=== PATIENT | male | born 1950 | race Caucasian/White ===

== ENCOUNTER 2016-12-26 11:30 | Emergency (ER) | payer OTHER ==
[~2016-12-26] VITALS: Ht 175.3 cm; Wt 86.0 kg
[2016-12-26 11:34] VITALS: Ht 175.3 cm; Wt 86.0 kg
[2016-12-26] MEDS ORDERED: SOD CHLORIDE 0.9% 1,000 ML IV STA (15:20)
[2016-12-26] MEDS ORDERED: KETOROLAC 30 MG INJ IV STA ×2 (15:20→17:36)
[2016-12-26] MEDS ORDERED: ONDANSETRON 4 MG INJ IV STA (15:20)
[2016-12-26 15:43] VITALS: BP 136/78; PULSE 72; RESP 16; TEMP 97.9
[2016-12-26 15:52] LABS: BASOPHILS % 0.5 % (0.0-2.0); EOSINOPHILS # 0.1 10^3/ul (0.0-0.5); EOSINOPHILS % 1.2 % (0.0-7.0); HEMATOCRIT 46.2 % (42.0-52.0); LYMPHOCYTES % 26.4 % (15.0-51.0); MEAN CORPUSCULAR HEMOGLOBIN 30.2 pg (29.0-33.0); MEAN CORPUSCULAR HGB CONC 32.5 g/dl (32.0-37.0); MEAN PLATELET VOLUME 10.9 fl (7.4-10.4); MONOCYTE # 0.6 10^3/ul (0.3-0.9); MONOCYTES % 7.6 % (0.0-11.0); NEUTROPHIL # 4.8 10^3/ul (1.6-7.5); PLATELET COUNT 166 10^3/UL (140-415); RED BLOOD COUNT 4.97 10^6/ul (4.70-6.10); RED CELL DISTRIBUTION WIDTH 13.2 % (11.5-14.5); WHITE BLOOD COUNT 7.5 10^3/ul (4.8-10.8)
[2016-12-26 15:57] LABS: ADD UMIC NO; UR ASCORBIC ACID 20 mg/dL (NEGATIVE); UR BILIRUBIN (Dip) NEGATIVE (NEGATIVE); UR BLOOD (Dip) NEGATIVE (NEGATIVE); UR CLARITY CLEAR (CLEAR); UR COLOR STRAW (YELLOW); UR GLUCOSE (Dip) NEGATIVE (NEGATIVE); UR KETONES (Dip) NEGATIVE (NEGATIVE); UR LEUKOCYTE ESTERASE (Dip) NEGATIVE Leu/ul (NEGATIVE); UR NITRITE (Dip) NEGATIVE (NEGATIVE); UR SPECIFIC GRAVITY (Dip) 1.008 (1.003-1.030); UR TOTAL PROTEIN (Dip) NEGATIVE (NEGATIVE); UR UROBILINOGEN (Dip) NEGATIVE (NEGATIVE)
[2016-12-26 16:18] LABS: ALBUMIN 4.5 g/dl (3.3-4.9); ALBUMIN/GLOBULIN RATIO 1.12; BILIRUBIN,INDIRECT 0.4 mg/dl (0-1.1); BILIRUBIN,TOTAL 0.4 mg/dl (0.2-1.3); CALCIUM 9.7 mg/dl (8.4-10.2); CREATININE 1.3 mg/dl (0.61-1.24); POTASSIUM 3.9 mmol/L (3.5-5.1); TOTAL PROTEIN 8.5 g/dl (6.1-8.1)
[2016-12-26] MEDS ORDERED: morphine 4 MG/ML VIAL IV STA (17:27)
--- NOTE | 2016-12-26 17:33 | RADRPT ---
PROCEDURE: CT Abdomen and Pelvis without contrast. CLINICAL INDICATION: Abdominal and pelvic pain. Left lower quadrant pain. TECHNIQUE: CT scan of the abdomen and pelvis without contrast was performed. Coronal and sagittal reformatted images were obtained from the axial source images. Images were reviewed on a high-resolu [employer] PACS workstation. Total exam DLP is 884.13 mGy-cm. CTDIvol is 13.60 mGy. One or more of the f ollowing dose reduction techniques were used: Automated exposure control, adjustment of the mA and/o r kV according to patient size, use of iterative reconstruction technique. COMPARISON: None. FINDINGS: The lung bases are normal. There is no pleural effusion. The liver is normal in size and attenuation. There is no focal hepatic lesion. The gallbladder is surgically absent with clips noted in the gallbladder bed. The bile ducts are nor mal. The spleen is normal in size. There is no focal splenic lesion. Both adrenals are normal with no enlargement or mass. The pancreas is unremarkable with no mass or evidence of pancreatitis. There is no renal mass or hydronephrosis. There is no renal calculus or ureteral calculus. The abdominal aorta is not dilated. There is calcification in the aorta consistent with atherosclero sis. There is no retroperitoneal lymphadenopathy or mass. There is no pelvic lymphadenopathy or mass. The bladder and distal ureters are normal. The periappendiceal region is unremarkable with no evidence of appendicitis. The appendix is well se en and appears normal. The bowel and mesentery are normal. There is no free fluid or free gas. There are degenerative changes of the spine. There is no fracture or lytic lesion. IMPRESSION: 1. Status post cholecystectomy. 2. Atherosclerosis. 3. Normal appendix. 4. No urinary tract calculus or hydronephrosis. 5. Degenerative changes of the spine. RPTAT: QQ .Hussain Zamora MD, MD Date Time Electronically viewed and signed by .Hussain Zamora MD, on 12/26/2016 17:33 .R/
--- NOTE | 2016-12-26 17:44 | ERD ---
ER Documentation Chief Complaint Date/Time DATE: 12/26/16 TIME: 17:41 Chief Complaint LEFT FLANK PAIN SINCE YESTERDAY HPI This is a 66-year-old male presents to the ER for evaluation of left-sided abdominal pain for the past 24 hours. He localizes the pain to the left portion of his abdomen and describes as achy pain with no radiation. He denies any nausea or vomiting associated with this but does state that he has constipation. The patient states that he came to the ER today for evaluation of this pain and denies any fevers associated with this and denies any chest pain or shortness of breath or palpitations. ROS All systems reviewed and are negative except as per history of present illness. PMhx/Soc Hx Cardiac Disorders: Yes (HTN) Hx Alcohol Use: No Hx Substance Use: No Hx Tobacco Use: No Smoking Status: Never smoker Physical Exam Vitals Vital Signs Date Time Temp Pulse Resp B/P Pulse Ox O2 Delivery O2 Flow Rate FiO2 12/26/16 15:43 97.9 72 16 136/78 99 12/26/16 11:34 98.1 73 18 149/73 99 Physical Exam INITIAL VITAL SIGNS: Reviewed by me GENERAL: The patient is well developed and appropriate for usual state of health in no apparent distress HEENT: Pupils equal, round, and reactive to light. EOMI. There is no scleral icterus. NECK: C-spine is soft and supple, there is no meningismus. There is no cervical lymphadenopathy. LUNGS: Clear to auscultation bilaterally. There are no rales, wheezes or rhonchi. HEART: Regular rate and rhythm, no murmurs, clicks, rubs or gallops. ABDOMEN: Lower quadrant tenderness to palpation, otherwise soft, non-tender, non -distended. There are bowel sounds in all four quadrants. No rebound or guarding. EXTREMITIES: There is no peripheral cyanosis or edema. No focal swelling or erythema. NEUROLOGICAL: The patient moves all four extremities with 5/5 strength. Cranial nerves II - XII are intact. Normal gait. Alert and oriented SKIN: There is no apparent rash or petechiae. HEME/LYMPHATIC: There is no evidence of excessive bruising or lymphedema. PSYCHIATRIC: The patient does not appear anxious or depressed. Result Diagram: 12/26/16 1530 12/26/16 1530 Results 24 hrs Laboratory Tests Test 12/26/16 15:30 White Blood Count 7.510^3/ul Red Blood Count 4.9710^6/ul Hemoglobin 15.0g/dl Hematocrit 46.2% Mean Corpuscular Volume 93.0fl Mean Corpuscular Hemoglobin 30.2pg Mean Corpuscular Hemoglobin Concent 32.5g/dl Red Cell Distribution Width 13.2% Platelet Count 78279^3/UL Mean Platelet Volume 10.9fl Neutrophils % 64.0% Lymphocytes % 26.4% Monocytes % 7.6% Eosinophils % 1.2% Basophils % 0.5% Nucleated Red Blood Cells % 0.0/100WBC Neutrophils # 4.810^3/ul Lymphocytes # 2.010^3/ul Monocytes # 0.610^3/ul Eosinophils # 0.110^3/ul Basophils # 0.010^3/ul Nucleated Red Blood Cells # 0.010^3/ul Urine Color STRAW Urine Clarity CLEAR Urine pH 7.0 Urine Specific Porter 1.008 Urine Ketones NEGATIVEmg/dL Urine Nitrite NEGATIVEmg/dL Urine Bilirubin NEGATIVEmg/dL Urine Urobilinogen NEGATIVEmg/dL Urine Leukocyte Esterase NEGATIVELeu/ul Urine Hemoglobin NEGATIVEmg/dL Urine Glucose NEGATIVEmg/dL Urine Total Protein NEGATIVEmg/dl Sodium Level 142mmol/L Potassium Level 3.9mmol/L Chloride Level 104mmol/L Carbon Dioxide Level 29mmol/L Anion Gap 13 Blood Urea Nitrogen 18mg/dl Creatinine 1.30mg/dl Glucose Level 109mg/dl Calcium Level 9.7mg/dl Total Bilirubin 0.4mg/dl Direct Bilirubin 0.00mg/dl Indirect Bilirubin 0.4mg/dl Aspartate Amino Transf (AST/SGOT) 42IU/L Alanine Aminotransferase (ALT/SGPT) 63IU/L Alkaline Phosphatase 79IU/L Total Protein 8.5g/dl Albumin 4.5g/dl Globulin 4.00g/dl Albumin/Globulin Ratio 1.12 Lipase 78U/L Current Medications Medications (Trade) Dose Ordered Sig/Karis Route PRN Reason Start Time Stop Time Status Last Admin Dose Admin Sodium Chloride (NS) 1,000 ml @ 1,000 mls/hr Q1H STAT IV 12/26/16 15:20 12/26/16 16:19 DC 12/26/16 15:35 Ondansetron HCl (Zofran Inj) 4 mg ONCE STAT IV 12/26/16 15:20 12/26/16 15:22 DC 12/26/16 15:35 Ketorolac Tromethamine (Toradol) 30 mg ONCE STAT IV 12/26/16 15:20 12/26/16 15:22 DC 12/26/16 15:35 Morphine Sulfate (morphine) 4 mg ONCE STAT IV 12/26/16 17:27 12/26/16 17:29 DC Ketorolac Tromethamine (Toradol) 30 mg ONCE STAT IV 12/26/16 17:36 12/26/16 17:37 UNV Procedures/MDM CT abdomen pelvis without: 1. Status post cholecystectomy. 2. Atherosclerosis. 3. Normal appendix. 4. No urinary tract calculus or hydronephrosis. 5. Degenerative changes of the spine. This is a 66-year-old male presents to the emergency room for evaluation of left -sided abdominal pain. On my examination he was afebrile, hemodynamically stable and did have some tenderness palpation in the left lower quadrant. Lab work was obtained which is within normal limits, urinalysis does not show any blood in the urine or any UTI. CT the abdomen and pelvis was obtained to rule out any colitis and the CT of the abdomen and pelvis does not reveal any acute processes. The patient does state he has a history of constipation and sometimes gets pain like this with constipation. She will be discharged home with a prescription for MiraLAX, Colace, and Naprosyn for breakthrough pain. The patient is okay to plan of care and advised him he can return to the ER any point for reevaluation and he verbalized understanding. Differential diagnoses entertained was broad with potential high acuity. Patient has been evaluated for appendicitis, cholecystitis, and other high risk medical and surgical causes of abdominal pain. Ultimately the patient's evaluation is nondiagnostic. Based on the patient's lack of risk factors, as well as the patient's clinical, laboratory, and imaging data, the patient appears to be low risk for these high risk causes of abdominal pain. Departure Diagnosis: Primary Impression: Flank pain Additional Impression: Renal insufficiency Condition: Stable ELIZABETHCHRISTINE PAGAN Dec 26, 2016 17:44
[2016-12-26] MEDS ORDERED: POLY17PO6 PO (17:45)
[2016-12-26] MEDS ORDERED: NAPR-260 PO (17:45)
[2016-12-26] MEDS ORDERED: DOCU-144 PO (17:45)
== END 2016-12-26 18:11 | disposition home or self-care (01) ==
LOC: E/R 11:30
DX: N28.9 Disorder of kidney and ureter, unspecified (principal); I10 Essential (primary) hypertension
CPT/HCPCS: 36415; 74176; 80053; 81003; 83690; 85025; 96374; 96375; J1885; J2405; J7030; Z7502

== ENCOUNTER 2018-05-22 07:15 | Observation (INO) | payer MEDICARE, OTHER ==
[~2018-05-22] VITALS: Ht 175.3 cm; Wt 83.4 kg
[~2018-05-22 07:15] MED LIST: DOCU-144 PO; NAPR-985 PO; POLY17PO6 PO
[2018-05-22] MEDS ORDERED: ASPIRIN 81 MG TAB PO STA (07:37)
[2018-05-22] MEDS ORDERED: NITROGLYCERIN 2% 1 GM OINT PKT TD STA (07:37)
[2018-05-22] MEDS ORDERED: NITROGLYCERIN (SL) 0.4 MG TAB SL PRN ×2 (08:00→15:30)
[2018-05-22] MEDS ORDERED: BENA40TA56 PO (08:19)
[2018-05-22] MEDS ORDERED: ATOR10TA65 PO (08:20)
[2018-05-22] MEDS ORDERED: METO-335 PO (08:20)
[2018-05-22] MEDS ORDERED: CEPH500C PO ×2 (08:21)
[2018-05-22] MEDS ORDERED: ACETAMINOPHEN 325 MG TAB PO PRN ×2 (09:30→15:30)
[2018-05-22] MEDS ORDERED: ONDANSETRON 4 MG INJ IV PRN ×2 (09:30→15:30)
--- NOTE | 2018-05-22 11:19 | ERD ---
ER Documentation Chief Complaint Chief Complaint C/O CP SINCE LAST NIGHT, RADIATES TO RIGHT SHOULDER HPI Patient is a 8-year-old male with hypertension who presents with chest pain. The patient said that it started last night. The patient has midsternal pain that radiates to his right shoulder. The pain comes and goes. The pain last 1 hour. The patient took Naprosyn. The pain is not currently there. Upon review of old medical records the patient had one previous visit to the ER in 2017. The patient does have a primary doctor. ROS All systems reviewed and are negative except as per history of present illness. Medications Home Meds Reported Medications Cephalexin* (Cephalexin*) 500 Mg Capsule, 500 MG PO Q8, #21 CAP 05/22/18 Cephalexin* (Cephalexin*) 500 Mg Capsule, 500 MG PO Q6 for 10 Days, #28 CAP PER PT IS ON 7TH DAY OF RX 05/22/18 Atorvastatin Calcium (Atorvastatin Calcium) 10 Mg Tablet, 10 MG PO QHS, #30 TAB 05/22/18 Metoprolol Succinate* (Toprol XL*) 25 Mg Tab.sr.24h, 25 MG PO QPM, #30 TAB 05/22/18 Benazepril Hcl* (Benazepril Hcl*) 40 Mg Tablet, 40 MG PO QAM, #30 TAB 05/22/18 Discontinued Scripts Polyethylene Glycol* (Miralax*) 17 Gm Powd.pack, 17 GM PO DAILY, #30 PACKET Prov:CHRISTINE JOHNSON DO 12/26/16 Docusate Sodium* (Colace*) 100 Mg Capsule, 100 MG PO TID, #30 CAP Prov:CHRISTINE JOHNSON DO 12/26/16 Naproxen* (Naprosyn*) 500 Mg Tablet, 500 MG PO BID PRN for PAIN AND/OR INFLAMMATION, #30 TAB Prov:CHRISTINE JOHNSON DO 12/26/16 Allergies Allergies: Coded Allergies: No Known Allergy (Unverified , 05/22/18) PMhx/Soc History of Surgery: Yes (PROSTECTOMY , CHOLECYSTECTOMY , HERNIA REPAIR ) Anesthesia Reaction: No Hx Neurological Disorder: No Hx Respiratory Disorders: No Hx Cardiac Disorders: Yes (HTN) Hx Psychiatric Problems: No Hx Miscellaneous Medical Probl: No Hx Alcohol Use: No Hx Substance Use: No Hx Tobacco Use: No Smoking Status: Never smoker FmHx Family History: coronary disease Physical Exam Vitals Vital Signs Date Temp Pulse Resp B/P (MAP) Pulse Ox O2 O2 Flow FiO2 Time Delivery Rate 05/22/18 71 16 123/79 98 Room Air 11:15 (94) 05/22/18 73 16 120/87 98 Room Air 10:30 (98) 05/22/18 69 16 138/93 97 Room Air 08:30 (108) 05/22/18 97.9 74 18 164/98 97 07:24 (120) Physical Exam Const: No acute distress Head: Atraumatic Eyes: Normal Conjunctiva ENT: Normal External Ears, Nose and Mouth. Neck: Full range of motion. No meningismus. Resp: Clear to auscultation bilaterally Cardio: Regular rate and rhythm, no murmurs Abd: Soft, non tender, non distended. Normal bowel sounds Skin: No petechiae or rashes Back: No midline or flank tenderness Ext: No cyanosis, or edema Neur: Awake and alert Psych: Normal Mood and Affect Result Diagram: 05/22/18 0754 05/22/18 0754 Results 24 hrs Laboratory Tests Test 05/22/18 07:54 White Blood Count 4.8 10^3/ul Red Blood Count 4.77 10^6/ul Hemoglobin 14.4 g/dl Hematocrit 42.9 % Mean Corpuscular Volume 89.9 fl Mean Corpuscular Hemoglobin 30.2 pg Mean Corpuscular Hemoglobin Concent 33.6 g/dl Red Cell Distribution Width 12.8 % Platelet Count 213 10^3/UL Mean Platelet Volume 10.0 fl Immature Granulocytes % 0.200 % Neutrophils % 58.9 % Lymphocytes % 28.3 % Monocytes % 8.7 % Eosinophils % 2.9 % Basophils % 1.0 % Nucleated Red Blood Cells % 0.0 /100WBC Immature Granulocytes # 0.010 10^3/ul Neutrophils # 2.8 10^3/ul Lymphocytes # 1.4 10^3/ul Monocytes # 0.4 10^3/ul Eosinophils # 0.1 10^3/ul Basophils # 0.1 10^3/ul Nucleated Red Blood Cells # 0.0 10^3/ul Sodium Level 141 mmol/L Potassium Level 4.1 mmol/L Chloride Level 104 mmol/L Carbon Dioxide Level 25 mmol/L Anion Gap 12 Blood Urea Nitrogen 23 mg/dl Creatinine 1.44 mg/dl Est Glomerular Filtrat Rate mL/min 49 mL/min Glucose Level 101 mg/dl Calcium Level 9.8 mg/dl Troponin I < 0.012 ng/ml Current Medications Medications Dose Sig/Karis Start Time Status Last (Trade) Ordered Route PRN Stop Time Admin Dose Reason Admin Aspirin 162 mg ONCE STAT 05/22/18 DC 05/22/18 (Aspirin) PO 07:37 07:47 05/22/18 07:38 1 inch ONCE STAT 05/22/18 DC 05/22/18 Nitroglycerin TD 07:37 07:47 05/22/18 07:38 (Nitroglyceri n 2% Oint) 1 tab Q5M UP TO 3 05/22/18 Nitroglycerin DOSES PRN 08:00 SL .CHEST (Nitroglyceri PAIN n (Sl Tab) 0.4 Mg) Ondansetron 4 mg ER BRIDGE 05/22/18 HCl (Zofran PRN IV 09:30 Inj) NAUSEA/VOMITI 05/23/18 09:29 NG 650 mg ER BRIDGE 05/22/18 Acetaminophen PRN PO 09:30 (Tylenol .MILD PAIN 05/23/18 09:29 Tab) 1-3 OR TEMP Procedures/MDM EKG read by me: Rate/Rhythm: Regular rate and rhythm at a normal rate Intervals: Normal Impression: No evidence of ischemia or arrhythmia Chest x-ray read by radiology. Patient is a 68-year-old male who presents with chest pain. I am concerned for possible acute coronary syndrome. I doubt pneumonia, pneumothorax, pulmonary embolism, or aortic dissection. The patient will be admitted to the panel team for a telemetry observation bed. Initial troponin is within normal limits. Departure Diagnosis: Primary Impression: Chest pain Chest pain type: unspecified Qualified Codes: R07.9 - Chest pain, unspecified Condition: JACEK Fitzgerald MD May 22, 2018 11:19
[2018-05-22 11:40] VITALS: Ht 175.3 cm; Wt 83.4 kg
[2018-05-22 11:45] VITALS: BP 135/73; PULSE 67; RESP 20
[2018-05-22 12:01] VITALS: PULSE 66
[2018-05-22 15:19] VITALS: BP 120/64; PULSE 74; RESP 16
[2018-05-22] MEDS ORDERED: morphine 2 MG INJ IV PRN (15:30)
[2018-05-22] MEDS ORDERED: DOCUSATE SODIUM 100 MG CAP PO PRN (15:30)
[2018-05-22] MEDS ORDERED: HYDROCODONE/APAP (5/325) TAB PO PRN (15:30)
[2018-05-22] MEDS ORDERED: NACL 0.9% 3 ML SYG IV SCH (15:30)
[2018-05-22] MEDS ORDERED: ZOLPIDEM 5 MG TAB PO PRN (15:30)
[2018-05-22 16:01] VITALS: PULSE 78
--- NOTE | 2018-05-22 16:23 | HP ---
Date/Time of Note Date/Time of Note DATE: 05/22/18 TIME: 16:18 Assessment/Plan VTE Prophylaxis Pharmacological prophylaxis: NA/contraindicated Pharm contraindication: low risk/ambulating Lines/Catheters IV Catheter Type (from Nrs): Saline Lock Assessment/Plan Hospital Course 1. Atypical chest pain likely secondary to costochondritis Pain is pleuritic and reproducible with palpation Patient has no significant cardiac risk factors Trend troponins 2. Right lower extremity pain Ultrasound to rule out DVT 3. Hypertension Continue home benazepril and metoprolol Prophylaxis: Ambulation Result Diagram: 05/22/18 0754 05/22/18 0754 Results 24hrs Laboratory Tests Test 05/22/18 07:54 05/22/18 13:50 White Blood Count 4.8 # Red Blood Count 4.77 Hemoglobin 14.4 Hematocrit 42.9 Mean Corpuscular Volume 89.9 Mean Corpuscular Hemoglobin 30.2 Mean Corpuscular Hemoglobin Concent 33.6 Red Cell Distribution Width 12.8 Platelet Count 213 # Mean Platelet Volume 10.0 Immature Granulocytes % 0.200 Neutrophils % 58.9 Lymphocytes % 28.3 Monocytes % 8.7 Eosinophils % 2.9 Basophils % 1.0 Nucleated Red Blood Cells % 0.0 Immature Granulocytes # 0.010 Neutrophils # 2.8 Lymphocytes # 1.4 Monocytes # 0.4 Eosinophils # 0.1 Basophils # 0.1 Nucleated Red Blood Cells # 0.0 Sodium Level 141 Potassium Level 4.1 Chloride Level 104 Carbon Dioxide Level 25 Anion Gap 12 Blood Urea Nitrogen 23 H Creatinine 1.44 H Est Glomerular Filtrat Rate mL/min 49 L Glucose Level 101 Calcium Level 9.8 Troponin I < 0.012 < 0.012 Creatine Kinase 160 Creatine Kinase Index 0.6 Creatinine Kinase MB (Mass) 0.95 HPI/ROS Admit Date/Time Admit Date/Time May 22, 2018 at 09:06 Hx of Present Illness Patient is a 68-year-old male with a history of hypertension, patient presents with chest pressure that began last night, pain is associated with coughing and deep breathing and is on both sides of his chest and exacerbated by palpation. Patient has no cardiac history, patient also reports right lower extremity pain in his calf. Patient has no other complaints at this time, he denies any recent flu or sick contacts, denies fever or chills. Patient has been reporting occasional cough as of the last week. ROS Constitutional: no complaints, improved Eyes: no complaints ENT: no complaints Respiratory: cough, pleuritic pain Cardiovascular: chest pain Gastrointestinal: no complaints Genitourinary: no complaints Musculoskeletal: bone/joint pain Skin: no complaints Neurologic: no complaints Endocrine: no complaints Lymphatic: no complaints Psychological: no complaints, nl mood/affect Immunologic: no complaints PMH/Family/Social Past Medical History Medical History: hypertension Medications Current Medications Nitroglycerin (Nitroglycerin (Sl Tab) 0.4 Mg) 1 tab Q5M UP TO 3 DOSES PRN SL .CHEST PAIN; Start 05/22/18 at 08:00 Ondansetron HCl (Zofran Inj) 4 mg ER BRIDGE PRN IV NAUSEA/VOMITING; Start 05/22/18 at 09:30; Stop 05/23/18 at 09:29 Acetaminophen (Tylenol Tab) 650 mg ER BRIDGE PRN PO .MILD PAIN 1-3 OR TEMP; Start 05/22/18 at 09:30; Stop 05/23/18 at 09:29 IV Flush (NS 3 ml) 3 ml PER PROTOCOL IV ; Start 05/22/18 at 15:30 Ondansetron HCl (Zofran Inj) 4 mg Q6H PRN IV NAUSEA/VOMITING; Start 05/22/18 at 15:30 Acetaminophen (Tylenol Tab) 650 mg Q6H PRN PO .PAIN 1-3 OR TEMP; Start 05/22/18 at 15:30 Acetaminophen/ Hydrocodone Bitart ([place] (5/325)) 1 tab Q6H PRN PO .MOD PAIN 4- 6; Start 05/22/18 at 15:30 Morphine Sulfate (morphine) 2 mg Q4H PRN IV .SEVERE PAIN 7-10; Start 05/22/18 at 15:30 Docusate Sodium (Colace) 100 mg Q12H PRN PO .CONSTIPATION; Start 05/22/18 at 15:30 Zolpidem Tartrate (Ambien) 5 mg QHS PRN PO .INSOMNIA; Start 05/22/18 at 15:30 Aspirin (Aspirin) 81 mg DAILY PO ; Start 05/24/18 at 09:00 Nitroglycerin (Nitroglycerin (Sl Tab) 0.4 Mg) 1 tab Q5M PRN SL CHEST PAIN; Start 05/22/18 at 15:30 Coded Allergies: No Known Allergy (Unverified , 05/22/18) Past Surgical History History of hernia repair and cholecystectomy Family History Significant Family History: no pertinent family hx Social History Alcohol Use: rarely Smoking Status: Former smoker Drug Use: none Exam/Review of Systems Vital Signs Vitals Vital Signs Date Temp Pulse Resp B/P (MAP) Pulse Ox O2 O2 Flow FiO2 Time Delivery Rate 05/22/18 97.6 74 16 120/64 98 Room Air 15:19 (82) Exam Constitutional: alert, oriented Respiratory: clear to auscultation Cardiovascular: regular rate and rhythm Gastrointestinal: soft; No distended Musculoskeletal: nl extremities to inspection, other (Tenderness to palpation of the chest) Extremities: calf tenderness (Right lower extremity) BRANDT DONG May 22, 2018 16:23
[2018-05-22 20:00] VITALS: BP 118/69; PULSE 69; PULSE 80; RESP 19
[2018-05-22] MEDS ORDERED: METOPROLOL (XL) 25 MG TAB PO SCH (21:00)
[2018-05-22] MEDS ORDERED: ATORVASTATIN 10 MG TAB PO SCH (21:00)
[2018-05-23] VITALS: BP 114/57; PULSE 65; PULSE 71; RESP 19
[2018-05-23 04:00] VITALS: BP 109/66; PULSE 65; PULSE 67; RESP 17
[2018-05-23 07:43] VITALS: BP 137/80; PULSE 71; RESP 20
[2018-05-23 08:19] VITALS: PULSE 71
[2018-05-23] MEDS ORDERED: BENAZEPRIL 40 MG TAB PO SCH (09:00)
--- NOTE | 2018-05-23 09:55 | PDOCDIS ---
Discharge Instructions CONDITION [id number] Patient Condition: [id number] Good HOME CARE INSTRUCTIONS: [id number] Diet Instructions: [id number] Regular ACTIVITY: [id number] Activity Restrictions: [id number] No Restrictions FOLLOW UP/APPOINTMENTS Follow-up Plan FOLLOW UP WITH YOUR PCP IN 1-2 WEEKS BRANDT DONG May 23, 2018 09:55
--- NOTE | 2018-05-23 15:00 | DS ---
Date/Time of Note Date/Time of Note DATE: 05/23/18 TIME: 14:58 Discharge Summary Admission/Discharge Info Admit Date/Time May 22, 2018 at 09:06 Discharge Date/Time May 23, 2018 at 11:00 Discharge Diagnosis 1. Atypical chest pain likely secondary to costochondritis Pain is pleuritic and reproducible with palpation Patient has no significant cardiac risk factors Troponins are negative 2. Right lower extremity pain secondary to muscular pain Lower extremity venous ultrasound is negative for DVT 3. Hypertension Continue home benazepril and metoprolol Patient Condition: Good Hospital Course Patient is a 68-year-old male with a history of hypertension, patient presents with chest pressure, patient was on both sides of his chest and was pleuritic in nature and reproducible with palpation. Patient's troponins were negative as was EKG and patient had no significant risk factors for coronary disease. Patient was diagnosed with costochondritis and was stable for DC. On the day of discharge patient's vitals, labs and physical exam are stable. Home Meds Reported Medications Cephalexin* (Cephalexin*) 500 Mg Capsule, 500 MG PO Q8, #21 CAP 05/22/18 Cephalexin* (Cephalexin*) 500 Mg Capsule, 500 MG PO Q6 for 10 Days, #28 CAP PER PT IS ON 7TH DAY OF RX 05/22/18 Atorvastatin Calcium (Atorvastatin Calcium) 10 Mg Tablet, 10 MG PO QHS, #30 TAB 05/22/18 Metoprolol Succinate* (Toprol XL*) 25 Mg Tab.sr.24h, 25 MG PO QPM, #30 TAB 05/22/18 Benazepril Hcl* (Benazepril Hcl*) 40 Mg Tablet, 40 MG PO QAM, #30 TAB 05/22/18 Discontinued Scripts Polyethylene Glycol* (Miralax*) 17 Gm Powd.pack, 17 GM PO DAILY, #30 PACKET Prov:CHRISTINE JOHNSON DO 12/26/16 Docusate Sodium* (Colace*) 100 Mg Capsule, 100 MG PO TID, #30 CAP Prov:CHRISTINE JOHNSON DO 12/26/16 Naproxen* (Naprosyn*) 500 Mg Tablet, 500 MG PO BID PRN for PAIN AND/OR INFLAMMATION, #30 TAB Prov:CHRISTINE JOHNSON DO 10/2/17 Follow-up Plan FOLLOW UP WITH YOUR PCP IN 1-2 WEEKS Primary Care Provider Not On Staff Doctor Time spent on discharge: > 30 minutes BRANDT DONG May 23, 2018 15:00
[2018-05-24] MEDS ORDERED: ASPIRIN 81 MG TAB PO SCH (09:00)
== END 2018-05-23 11:00 | disposition home or self-care (01) ==
LOC: E/R 07:15 → TEL 09:06
PROVIDERS: ADMIT Internal Medicine; ATTEND Internal Medicine
DX: R07.89 Other chest pain (principal); M79.661 Pain in right lower leg; I10 Essential (primary) hypertension
CPT/HCPCS: 71045; 80048; 80061; 82550; 82553; 83036; 83735; 84100; 84484; 85025; 93005; 93970; G0378; 36415

== ENCOUNTER 2018-06-26 08:08 | Emergency (ER) | payer MEDICARE, OTHER ==
[~2018-06-26] VITALS: Ht 177.8 cm; Wt 83.9 kg
[~2018-06-26 08:08] MED LIST changes: +ATOR10TA65 PO; +BENA40TA56 PO; +CEPH500C PO; -DOCU-144 PO; +METO-335 PO; -NAPR-985 PO; -POLY17PO6 PO
[2018-06-26 08:10] VITALS: BP 157/84; PULSE 75; RESP 16; Ht 177.8 cm; Wt 83.9 kg
[2018-06-26] MEDS ORDERED: CYCL10TA7 PO (08:30)
[2018-06-26] MEDS ORDERED: TRAM50TA2 PO (08:30)
--- NOTE | 2018-06-26 08:55 | ERD ---
ER Documentation Chief Complaint Chief Complaint Pt reports R hip pain x 2 weeks, denies injury HPI 68-year-old male presenting with pain to his right hip for the last 2 weeks. Patient denies any injury. He has no pain with sitting however when he stands up to try and walk he experiences pain to the lateral portion of his right hip. Denies any numbness or tingling. Medical history is hypertension. NKDA. Surgical history is gallbladder, hernia, prostate removal. Social history denies ROS All systems reviewed and are negative except as per history of present illness. Medications Home Meds Active Scripts Tramadol HCl (Tramadol HCl) 50 Mg Tablet, 50 MG PO Q4 PRN for PAIN, #20 TAB Prov:CASSIE NI PA-C 06/26/18 Cyclobenzaprine Hcl* (Cyclobenzaprine Hcl*) 10 Mg Tablet, 10 MG PO TID, #15 TAB Prov:CASSIE NI PA-C 06/26/18 Reported Medications Cephalexin* (Cephalexin*) 500 Mg Capsule, 500 MG PO Q8, #21 CAP 05/22/18 Cephalexin* (Cephalexin*) 500 Mg Capsule, 500 MG PO Q6 for 10 Days, #28 CAP PER PT IS ON 7TH DAY OF RX 05/22/18 Atorvastatin Calcium (Atorvastatin Calcium) 10 Mg Tablet, 10 MG PO QHS, #30 TAB 05/22/18 Metoprolol Succinate* (Toprol XL*) 25 Mg Tab.sr.24h, 25 MG PO QPM, #30 TAB 05/22/18 Benazepril Hcl* (Benazepril Hcl*) 40 Mg Tablet, 40 MG PO QAM, #30 TAB 05/22/18 Allergies Allergies: Coded Allergies: No Known Allergy (Unverified , 05/22/18) PMhx/Soc History of Surgery: Yes (inguinal hernia, cholecystectomy,PROSTATE) Anesthesia Reaction: Yes Hx Neurological Disorder: No Hx Respiratory Disorders: No Hx Cardiac Disorders: Yes (HTN) Hx Psychiatric Problems: No Hx Miscellaneous Medical Probl: No Hx Alcohol Use: No Hx Substance Use: No Hx Tobacco Use: No Smoking Status: Never smoker FmHx Family History: No diabetes, No coronary disease, No other Physical Exam Vitals Vital Signs Date Temp Pulse Resp B/P (MAP) Pulse Ox O2 O2 Flow FiO2 Time Delivery Rate 06/26/18 98.1 75 16 157/84 97 08:10 (108) Physical Exam GENERAL: The patient is well-appearing, well-nourished, in no acute distress CHEST: Clear to auscultation bilaterally. There are no rales, wheezes or rhonchi. HEART: Regular rate and rhythm. No murmurs, clicks, rubs or gallops. BACK: No midline or flank tenderness. EXTREMITIES: Tender to palpation over the lateral aspect of the right leg extending from the hip down to the knee. No valgus or varus deformity. Pain with crossing of the leg and stretching along the IT band. No pain along the back or buttocks. No deformity. Strength 5 out of 5. Movement within normal ranges. NEUROLOGIC: Alert and oriented. Cranial nerves II through XII intact. Motor strength in all 4 extremities with 5 out of 5 strength. Sensation grossly intact. Normal speech and gait. Babinski negative. DTR 2+ throughout. SKIN: There is no apparent rash or petechiae. The skin is warm and dry. Procedures/MDM MDM: 68-year-old male presenting with pain along the IT band. Patient likely has IT band syndrome and requires stretching with pain medications. I have low suspicion for acute fracture dislocation. I have low suspicion for tendon or ligament injury. I have low suspicion for neuro deficit. Patient is discharged with strict ER precautions and told to follow-up with primary care within 1-2 days for close evaluation. Patient is told symptoms change or worsen to return immediately to the ER. All questions answered at discharge Departure Diagnosis: Primary Impression: IT band syndrome Condition: Stable Patient Instructions: Muscle Strain, Extremity Referrals: [facility] YOU HAVE RECEIVED A MEDICAL SCREENING EXAM AND THE RESULTS INDICATE THAT YOU DO NOT HAVE A CONDITION THAT REQUIRES URGENT TREATMENT IN THE EMERGENCY DEPARTMENT. FURTHER EVALUATION AND TREATMENT OF YOUR CONDITION CAN WAIT UNTIL YOU ARE SEEN IN YOUR DOCTORS OFFICE WITHIN THE NEXT 1-2 DAYS. IT IS YOUR RESPONSIBILITY TO MAKE AN APPOINTMENT FOR FOLOW-UP CARE. IF YOU HAVE A PRIMARY DOCTOR --you should call your primary doctor and schedule an appointment IF YOU DO NOT HAVE A PRIMARY DOCTOR YOU CAN CALL OUR PHYSICIAN REFERRAL HOTLINE AT IF YOU CAN NOT AFFORD TO SEE A PHYSICIAN YOU CAN CHOSE FROM THE FOLLOWING [facility] [address] [facility] [address] [facility] [address] [facility] [address] [facility]. [facility] [address] [facility] [facility] [address] Additional Instructions: FOLLOW UP WITH YOUR PRIMARY CARE PHYSICIAN TOMORROW.Return to this facility if you are not improving as expected. CASSIE NI PA-C Jun 26, 2018 08:55
== END 2018-06-26 09:00 | disposition home or self-care (01) ==
LOC: FTE 08:08
DX: M76.31 Iliotibial band syndrome, right leg (principal); I10 Essential (primary) hypertension
CPT/HCPCS: 99283

== ENCOUNTER 2018-07-22 20:36 | Emergency (ER) | payer MEDICARE, OTHER ==
[~2018-07-22] VITALS: Ht 175.3 cm; Wt 81.0 kg
[~2018-07-22 20:36] MED LIST changes: +CYCL10TA7 PO; +TRAM50TA2 PO
[2018-07-22 20:54] VITALS: Ht 175.3 cm; Wt 81.0 kg
[2018-07-22] MEDS ORDERED: morphine 4 MG/ML VIAL IV STA (21:06)
[2018-07-22] MEDS ORDERED: ONDANSETRON 4 MG INJ IV STA (21:06)
[2018-07-22] MEDS ORDERED: ACET325T33 PO (23:02)
--- NOTE | 2018-07-22 23:05 | ERD ---
ER Documentation Chief Complaint Chief Complaint LLQ abd pain since last night; denies N/V, no diarrhea HPI Patient is a 68-year-old male with hypertension who presents with abdominal pain. The patient has left lower quadrant abdominal pain which started a few days ago. He says that it was "severe" last night. He describes the pain is a 9 or 10 out of 10. He has no fevers. He has no vomiting or diarrhea. He felt constipated but had a bowel movement this morning. His primary doctor is Dr. Miguel Persaud. ROS All systems reviewed and are negative except as per history of present illness. Medications Home Meds Active Scripts Acetaminophen* (Tylenol*) 325 Mg Tablet, 2 TAB PO Q8 PRN for PAIN AND OR ELEVATED TEMP, #20 TAB Prov:JACEK GUILLEN MD 07/22/18 Tramadol HCl (Tramadol HCl) 50 Mg Tablet, 50 MG PO Q4 PRN for PAIN, #20 TAB Prov:CASSIE NI PA-C 06/26/18 Cyclobenzaprine Hcl* (Cyclobenzaprine Hcl*) 10 Mg Tablet, 10 MG PO TID, #15 TAB Prov:CASSIE NI PA-C 06/26/18 Reported Medications Cephalexin* (Cephalexin*) 500 Mg Capsule, 500 MG PO Q8, #21 CAP 05/22/18 Cephalexin* (Cephalexin*) 500 Mg Capsule, 500 MG PO Q6 for 10 Days, #28 CAP PER PT IS ON 7TH DAY OF RX 05/22/18 Atorvastatin Calcium (Atorvastatin Calcium) 10 Mg Tablet, 10 MG PO QHS, #30 TAB 05/22/18 Metoprolol Succinate* (Toprol XL*) 25 Mg Tab.sr.24h, 25 MG PO QPM, #30 TAB 05/22/18 Benazepril Hcl* (Benazepril Hcl*) 40 Mg Tablet, 40 MG PO QAM, #30 TAB 05/22/18 Allergies Allergies: Coded Allergies: No Known Allergy (Unverified , 05/22/18) PMhx/Soc History of Surgery: Yes (inguinal hernia, cholecystectomy,PROSTATE) Anesthesia Reaction: Yes Hx Neurological Disorder: No Hx Respiratory Disorders: No Hx Cardiac Disorders: Yes (HTN, dyslipidemia) Hx Psychiatric Problems: No Hx Miscellaneous Medical Probl: No Hx Alcohol Use: No Hx Substance Use: No Hx Tobacco Use: Yes (quit 15 ya) Smoking Status: Former smoker FmHx Family History: No diabetes Physical Exam Vitals Vital Signs Date Temp Pulse Resp B/P (MAP) Pulse Ox O2 O2 Flow FiO2 Time Delivery Rate 07/22/18 98.3 81 18 167/83 95 20:54 (111) Physical Exam Const: Mild distress secondary to pain Head: Atraumatic Eyes: Normal Conjunctiva ENT: Normal External Ears, Nose and Mouth. Neck: Full range of motion. No meningismus. Resp: Clear to auscultation bilaterally Cardio: Regular rate and rhythm, no murmurs Abd: Soft, lower quadrant tenderness to palpation without rebound or guarding Skin: No petechiae or rashes Back: No midline or flank tenderness Ext: No cyanosis, or edema Neur: Awake and alert Psych: Normal Mood and Affect Result Diagram: 07/22/18211407/22/182114 Results 24 hrs Laboratory Tests Test 07/22/18 21:10 07/22/18 21:15 Urine Color STRAW Urine Clarity CLEAR Urine pH 6.0 Urine Specific Causey 1.009 Urine Ketones NEGATIVE mg/dL Urine Nitrite NEGATIVE mg/dL Urine Bilirubin NEGATIVE mg/dL Urine Urobilinogen NEGATIVE mg/dL Urine Leukocyte Esterase NEGATIVE Brionna/ul Urine Hemoglobin NEGATIVE mg/dL Urine Glucose NEGATIVE mg/dL Urine Total Protein NEGATIVE mg/dl White Blood Count 7.7 10^3/ul Red Blood Count 4.48 10^6/ul Hemoglobin 13.7 g/dl Hematocrit 41.1 % Mean Corpuscular Volume 91.7 fl Mean Corpuscular Hemoglobin 30.6 pg Mean Corpuscular Hemoglobin Concent 33.3 g/dl Red Cell Distribution Width 12.9 % Platelet Count 180 10^3/UL Mean Platelet Volume 9.7 fl Immature Granulocytes % 0.400 % Neutrophils % 65.8 % Lymphocytes % 21.7 % Monocytes % 10.5 % Eosinophils % 1.2 % Basophils % 0.4 % Nucleated Red Blood Cells % 0.0 /100WBC Immature Granulocytes # 0.030 10^3/ul Neutrophils # 5.0 10^3/ul Lymphocytes # 1.7 10^3/ul Monocytes # 0.8 10^3/ul Eosinophils # 0.1 10^3/ul Basophils # 0.0 10^3/ul Nucleated Red Blood Cells # 0.0 10^3/ul Sodium Level 142 mmol/L Potassium Level 4.0 mmol/L Chloride Level 105 mmol/L Carbon Dioxide Level 28 mmol/L Anion Gap 9 Blood Urea Nitrogen 25 mg/dl Creatinine 1.62 mg/dl Est Glomerular Filtrat Rate mL/min 43 mL/min Glucose Level 114 mg/dl Calcium Level 9.8 mg/dl Total Bilirubin 0.3 mg/dl Direct Bilirubin 0.00 mg/dl Indirect Bilirubin 0.3 mg/dl Aspartate Amino Transf (AST/SGOT) 29 IU/L Alanine Aminotransferase (ALT/SGPT) 30 IU/L Alkaline Phosphatase 58 IU/L Total Protein 7.3 g/dl Albumin 4.4 g/dl Globulin 2.90 g/dl Albumin/Globulin Ratio 1.51 Lipase 101 U/L Current Medications Medications Dose Sig/Karis Start Time Status Last (Trade) Ordered Route PRN Stop Time Admin Dose Reason Admin Morphine 4 mg ONCE STAT 07/22/18 DC 07/22/18 Sulfate IV 21:06 21:21 (morphine) 07/22/18 21:07 Ondansetron 4 mg ONCE STAT 07/22/18 DC 07/22/18 HCl (Zofran IV 21:06 21:21 Inj) 07/22/18 21:07 Procedures/MDM CT abdomen pelvis shows epiploic appendagitis per radiology. Patient is a 68-year-old male with hypertension who presents with abdominal pain. CT scan shows epiploic appendagitis but no diverticulitis or bowel obstruction per radiologist. At this point I doubt appendicitis, cholecystitis, pancreatitis, or bowel obstruction. The patient will be discharged with a prescription for Tylenol for pain given his slight increase in creatinine I want to avoid ibuprofen. The patient will need to follow-up closely with the primary doctor within 24 to 48 hours for reevaluation. The patient can return sooner if symptoms worsen. The patient understands the plan and is okay for discharge at this time. Departure Diagnosis: Primary Impression: Epiploic appendagitis Additional Impression: Abdominal pain Abdominal location: left lower quadrant Qualified Codes: R10.32 - Left lower quadrant pain Condition: Fair Patient Instructions: Abdominal Pain Referrals: Dr. Miguel Persaud Additional Instructions: Call your primary care doctor TOMORROW for an appointment during the next 1-2 days.See the doctor sooner or return here if your condition worsens before your appointment time. JACEK GUILLEN MD Jul 22, 2018 23:05
[2018-07-22 23:21] VITALS: BP 126/84; PULSE 78; RESP 16
== END 2018-07-22 23:22 | disposition home or self-care (01) ==
LOC: E/R 20:36
DX: K65.9 Peritonitis, unspecified (principal); I10 Essential (primary) hypertension; Z87.891 Personal history of nicotine dependence
CPT/HCPCS: 74176; 80053; 81003; 83690; 85025; J2270; J2405; 36415; 96374; 96375